=== PATIENT | male | born 1995 ===

== ENCOUNTER 2018-10-06 13:25 | Emergency (ER) | payer OTHER ==
[2018-10-06 13:40] VITALS: BP 134/75
[2018-10-06] MEDS ORDERED: Tetan/Diph/Pertus SYR(Tdap)* 0.5 ML SYR(BOOSTRIX) use SYR IM ONE (13:54)
--- NOTE | 2018-10-06 14:53 | ED ---
Laceration/Wound HPI - HPI Summary HPI Summary: 23 yo WM p/w right dorsum of wrist laceration, was trying to grab his knife and at his back pocket and accidentally poked himself with the knife, no bleeding. Tdap received today - History of Current Complaint Stated Complaint: WC HAND LAC Time Seen by Provider: 10/06/18 14:36 Pain Intensity: 3 - Allergy/Home Medications Allergies/Adverse Reactions: Allergies Allergy/AdvReac Type Severity Reaction Status Date / Time Penicillins Allergy Unknown Verified 10/06/18 13:40 Reaction Details Home Medications: Home Medications NK [No Home Medications Reported] 10/06/18 [History Confirmed 10/06/18] PMH/Surg Hx/FS Hx/Imm Hx Infectious Disease History: No Infectious Disease History: Denies: Traveled Outside the [place] in Last 30 Days - Social History Alcohol Use: Occasionally Substance Use Type: Reports: None Smoking Status (MU): Light Every Day Tobacco Smoker Type: eCigarettes Amount Used/How Often: juul Review of Systems - ROS Summary Review of Systems Summary: Constitutional: Negative Skin: right dorsum of wrist laceration Eyes: Negative ENT: Negative Cardiovascular: Negative Respiratory: Negative Gastrointestinal: Negative Genitourinary: Negative Musculoskeletal: Negative Neurological: Negative Psychological: Normal All Other Systems Reviewed And Are Negative: Yes All Other Systems Reviewed And Are Negative: Yes Physical Exam - Summary Physical Exam Summary: Vital Signs Reviewed: Yes Appearance: Positive: No Pain Distress Skin: Positive:1cm V shaped laceration on dorsum of right wrist, no subcut tissue seen Head/Face: Positive: Normal Head/Face Inspection Eyes: Positive: Normal ENT: Positive: Normal ENT inspection Neck: Positive: Supple Respiratory/Lung Sounds: Positive: Clear to Auscultation. Negative: Rales, Rhonchi, Wheezes Cardiovascular: Positive: Normal, RRR, S1, S2 Abdomen Description: Positive: Nontender Musculoskeletal: Positive: Normal Neurological: Positive: Normal, CN Intact II-III Psychiatric: Positive: Normal, Affect/Mood Appropriate Triage Information Reviewed: Yes Vital Signs On Initial Exam: Initial Vitals Temp Pulse Resp BP Pulse Ox 36.6 C 62 18 134/75 100 10/06/18 13:35 10/06/18 13:35 10/06/18 13:35 10/06/18 13:35 10/06/18 13:35 Procedures - Laceration/Wound Repair 1 Location: Other - wrist Description: Linear Betadine Prep?: No Laceration/Wound Explored: clean, no foreign body removed Closure: Skin Adhesive Debridement: minimal Layer Closure?: No Sterile Dressing Applied?: Yes Diagnostics - Vital Signs Vital Signs Temp Pulse Resp BP Pulse Ox 10/06/18 13:35 36.6 C 62 18 134/75 100 - Laboratory Lab Statement: Any lab studies that have been ordered have been reviewed, and results considered in the medical decision making process. Laceration Repair Course/Dx - Course Assessment/Plan: lac repaired with tissue adhesive, pt tolerated procedure well - Clinical Impression Provider Diagnoses: Laceration of wrist without complication Discharge - Sign-Out/Discharge Documenting (check all that apply): Patient Departure All imaging exams completed and their final reports reviewed: Yes - Discharge Plan Condition: Stable Disposition: HOME Patient Education Materials: Skin Adhesive Care (ED) Additional Instructions: COme back in 2 days for a wound check - Billing Disposition and Condition Condition: STABLE Disposition: Home
== END 2018-10-06 15:18 | disposition home or self-care (01) ==
LOC: UCEAST 13:25
DX: S61.511A Laceration without foreign body of right wrist, initial encounter (principal); F17.290 Nicotine dependence, other tobacco product, uncomplicated; Z88.0 Allergy status to penicillin; W26.0XXA Contact with knife, initial encounter; Y92.9 Unspecified place or not applicable
CPT/HCPCS: 12001; 90471; 90715; 99201; G0463